=== PATIENT | female | born 1965 | race Caucasian/White ===

== ENCOUNTER 2017-05-15 11:11 | Emergency (ER) | payer OTHER, SELFPAY ==
[2017-05-15 11:53] LABS: #Eosinphils 1.1 thou/uL (0.0-0.7); #Lymphocytes 1.2 thou/uL (1.20-3.40); #Monocytes 0.4 thou/uL (0.11-0.59); #Neutrophils 1.8 thou/uL (1.40-6.50); %Basophils 0.4 % (0.0-1.0); %Eosinophils 24.9 % (0.0-10.0); %Lymphocytes 26.4 % (21.0-51.0); %Monocytes 7.9 % (0.0-10.0); Hematocrit 48.3 % (36.0-47.0); Mean Platelet Volume 8.4 fL (7.4-10.4); Red Blood Cell (RBC) Count 5.39 mill/uL (4.20-5.40); White Blood Cell (WBC) Count 4.4 thou/uL (4.8-10.8)
[2017-05-15 12:16] LABS: ALT (SGPT) 13 U/L (8-55); AST (SGOT) 16 U/L (5-34); Alkaline Phosphatase 83 U/L (40-150); Anion Gap 9 mmol/L (10-20); BUN (Urea Nitrogen) 16 mg/dL (9.8-20.1); Bilirubin, Total 0.6 mg/dL (0.2-1.2); Calc. Creatinine Clearance 0 mL/min (70-130); Calcium 10.1 mg/dL (7.8-10.44); Carbon Dioxide 28 mmol/L (22-29); Chloride 109 mmol/L (98-107); Estimated GFR-MDRD 61; Globulin 3.4 g/dL (2.4-3.5); Protein, Total 7.6 g/dL (6.0-8.3)
--- NOTE | 2017-05-15 12:19 | RAD ---
PORTABLE CHEST ONE VIWE: 05/15/2017 11:50 a.m. HISTORY: Cough. Shortness of breath. FINDINGS: The heart size is normal. The lungs are well expanded without focal areas of consolidation, pneumot horax, or pleural effusions. IMPRESSION: No radiographic evidence of acute cardiopulmonary process. POS: [facility]
[2017-05-15 12:21] LABS: PTT 31.6 SEC (22.9-36.1); Prothrombin Time 13.4 SEC (12.0-14.7)
[2017-05-15 12:28] LABS: CK (CPK) 47 U/L (29-168); Lipase 48 U/L (8-78)
[2017-05-15 12:34] LABS: Troponin I Less than 0.010 ng/mL (< 0.028)
--- NOTE | 2017-06-26 13:52 | EKG ---
Test Reason : Blood Pressure : / mmHG Vent. Rate : 097 BPM Atrial Rate : 097 BPM P-R Int : 110 ms QRS Dur : 082 ms QT Int : 344 ms P-R-T Axes : 059 075 070 degrees QTc Int : 436 ms Poor data quality, interpretation may be adversely affected Sinus rhythm with short MO Minimal voltage criteria for LVH, may be normal variant Borderline ECG Confirmed by BLANCA FELIPE, MATT ([id number]), film editor supervisor REFUGIO MARTINEZ ([id number]) on 06/26/2017 1:52:04 PM Referred By: Confirmed By:MATT RIOS MD
== END 2017-05-15 13:12 | disposition home or self-care (01) ==
LOC: ERS 11:11
DX: R07.89 Other chest pain (principal); F31.9 Bipolar disorder, unspecified; F17.290 Nicotine dependence, other tobacco product, uncomplicated
CPT/HCPCS: 71010; 80053; 82553; 83690; 83880; 84484; 85025; 85379; 85610; 85730; 93005; 94760

== ENCOUNTER 2017-07-31 20:18 | Emergency (ER) | payer SELFPAY ==
[2017-07-31] MEDS ORDERED: Ondansetron ODT 4 MG TAB ONE ×2 (22:10→23:05)
[2017-07-31] MEDS ORDERED: Ondansetron HCl/PF 4 MG/2 ML Vial ONE (22:38)
== END 2017-07-31 23:28 | disposition left against medical advice (07) ==
LOC: SCSER 20:18
DX: K52.9 Noninfective gastroenteritis and colitis, unspecified (principal); F31.9 Bipolar disorder, unspecified; F17.290 Nicotine dependence, other tobacco product, uncomplicated
CPT/HCPCS: 96372; J2405; Q0162

== ENCOUNTER 2017-10-25 09:47 | Emergency (ER) | payer SELFPAY ==
[2017-10-25] MEDS ORDERED: Ketorolac Tromethamine 60 MG/2 ML VIAL ONE (10:06)
[2017-10-25 10:15] LABS: Bilirubin Negative (Negative); Blood, Urine Negative (Negative); Clarity Clear (Clear); Glucose, Urine (Dipstick) Negative (Negative); Leukocyte Negative (Negative); Nitrite Negative (Negative); Protein, Urine (Dipstick) Negative (Neg-Trace); Urobilinogen 0.2 mg/dL (0.2-1.0); pH, Urine 6.5 (5.0-9.0)
--- NOTE | 2017-10-25 11:14 | CT ---
NONCONTRAST CT ABDOMEN AND PELVIS: Date: 10-25-17 History: Right flank pain. History of appendectomy and . Comparison: 11-22-05 FINDINGS: There is partial visualization of bilateral breasts prostheses. The lung bases, liver, spleen, pancreas, bilateral adrenal glands, kidneys, urinary bladder, uterus, and adnexal structures demonstrate a grossly normal nonenhanced CT appearance. No renal or ureteral c alculi are seen bilaterally. Minimal vascular calcifications are now present in the abdominal aorta. Previously noted left adnexal cystic structure on prior exam is not seen on today's study. There is partial sacralization of the L 5 vertebral body on the left. There is fusion of the left lateral mass of L5 with S1. IMPRESSION: No renal or ureteral calculi are seen bilaterally. POS: [facility]
== END 2017-10-25 10:57 | disposition home or self-care (01) ==
LOC: SCSER 09:47
DX: M54.5 Low back pain (principal); J44.9 Chronic obstructive pulmonary disease, unspecified; F31.9 Bipolar disorder, unspecified; F17.210 Nicotine dependence, cigarettes, uncomplicated
CPT/HCPCS: 74176; 81003; 96372; J1885

== ENCOUNTER 2017-12-17 00:25 | Emergency (ER) | payer SELFPAY ==
[2017-12-17 00:58] LABS: Bilirubin Negative (Negative); Blood, Urine Negative (Negative); Clarity CLEAR (Clear); Glucose, Urine (Dipstick) Negative (Negative); Leukocyte Small (Negative); Nitrite Negative (Negative); Protein, Urine (Dipstick) Negative (Neg-Trace); Specific Gravity, Urine 1.023 (1.002-1.036); Urobilinogen 0.2 mg/dL (0.2-1.0); pH, Urine 6.5 (5.0-9.0)
[2017-12-17 01:01] LABS: Bacteria/HPF None Seen HPF (None Seen); Hyaline Casts/LPF 0-3 HYALINE CAST LPF (0-3 Hyaline); Pathc Cast-AUWi Flag 0.14 (0-2.49); RBC/HPF 0-3 HPF (0-3)
[2017-12-17] MEDS ORDERED: Lidocaine 1% PF 5 ML VIAL ONE (02:34)
[2017-12-17] MEDS ORDERED: Azithromycin 250 MG TAB ONE (02:34)
[2017-12-17] MEDS ORDERED: cefTRIAXone\\ROCEPHIN 250 MG VIAL ONE (02:34)
[2017-12-19 03:17] LABS: Chlamydia by PCR Not Detected (NotDetected); GC by PCR Not Detected (NotDetected)
== END 2017-12-17 02:43 | disposition home or self-care (01) ==
LOC: ERS 00:25
DX: N89.8 Other specified noninflammatory disorders of vagina (principal); J44.9 Chronic obstructive pulmonary disease, unspecified; F31.9 Bipolar disorder, unspecified; F17.290 Nicotine dependence, other tobacco product, uncomplicated
CPT/HCPCS: 81003; 81015; 87086; 87480; 87491; 87510; 87591; 87660; 96372; J0696; J2001

== ENCOUNTER 2018-03-23 10:04 | Emergency (ER) | payer SELFPAY ==
[2018-03-23] MEDS ORDERED: metroNIDAZOLE 500 MG TAB ONE (10:38)
[2018-03-23] MEDS ORDERED: Lidocaine 1% PF 5 ML VIAL ONE (10:38)
[2018-03-23] MEDS ORDERED: cefTRIAXone\\ROCEPHIN 250 MG VIAL ONE (10:38)
[2018-03-25 20:51] LABS: Chlamydia by PCR Not Detected (NotDetected); GC by PCR Not Detected (NotDetected)
== END 2018-03-23 11:00 | disposition home or self-care (01) ==
LOC: SCSER 10:04
DX: N76.0 Acute vaginitis (principal); J44.9 Chronic obstructive pulmonary disease, unspecified; F31.9 Bipolar disorder, unspecified; F17.290 Nicotine dependence, other tobacco product, uncomplicated
CPT/HCPCS: 87480; 87491; 87510; 87591; 87660; 96372; J0696; J2001

== ENCOUNTER 2018-03-27 23:07 | Emergency (ER) | payer SELFPAY ==
[2018-03-27] MEDS ORDERED: Ibuprofen 200 MG TAB ONE (23:46)
== END 2018-03-28 00:15 | disposition home or self-care (01) ==
LOC: ERS 23:07
DX: J02.9 Acute pharyngitis, unspecified (principal); J44.9 Chronic obstructive pulmonary disease, unspecified; F31.9 Bipolar disorder, unspecified; F17.290 Nicotine dependence, other tobacco product, uncomplicated
CPT/HCPCS: 87070; 87081; 87430; 99283

== ENCOUNTER 2018-06-23 16:42 | Emergency (ER) | payer SELFPAY | END 2018-06-23 17:27 | disposition home or self-care (01) | LOC: SCSER 16:42 | DX: L73.9 Follicular disorder, unspecified (principal); F31.9 Bipolar disorder, unspecified; F17.290 Nicotine dependence, other tobacco product, uncomplicated | CPT/HCPCS: 99283 ==

== ENCOUNTER 2018-08-07 10:37 | Emergency (ER) | payer SELFPAY ==
--- NOTE | 2018-08-07 11:47 | RAD ---
TWO VIEWS CHEST: Comparison: 06-30-16 History: Productive cough. FINDINGS: Two views of the chest show normal sized cardiomediastinal silhouette. There is no evidence of consol idation, mass, or pleural effusion. The bones are unremarkable. IMPRESSION: No evidence of acute cardiopulmonary disease. POS: [facility]
== END 2018-08-07 11:45 | disposition home or self-care (01) ==
LOC: SCSER 10:37
DX: J06.9 Acute upper respiratory infection, unspecified (principal); J44.9 Chronic obstructive pulmonary disease, unspecified; F31.9 Bipolar disorder, unspecified; F17.290 Nicotine dependence, other tobacco product, uncomplicated
CPT/HCPCS: 71046

== ENCOUNTER 2018-09-25 13:10 | Emergency (ER) | payer SELFPAY ==
[2018-09-25] MEDS ORDERED: Lidocaine Viscous Sol 2% 15 ml UD Cup ONE (13:28)
== END 2018-09-25 13:37 | disposition home or self-care (01) ==
LOC: SCSER 13:10
DX: J20.9 Acute bronchitis, unspecified (principal); K13.70 Unspecified lesions of oral mucosa; F31.9 Bipolar disorder, unspecified
CPT/HCPCS: 99283

== ENCOUNTER 2018-10-09 13:45 | Emergency (ER) | payer SELFPAY ==
[2018-10-09] MEDS ORDERED: cefTRIAXone\\ROCEPHIN 250 MG VIAL ONE (14:22)
[2018-10-09] MEDS ORDERED: Azithromycin 250 MG TAB ONE (14:22)
[2018-10-09] MEDS ORDERED: Lidocaine 1% MPF 2 ML VIAL ONE (14:22)
[2018-10-12 12:06] LABS: Chlamydia by PCR Not Detected (NotDetected); GC by PCR Not Detected (NotDetected)
== END 2018-10-09 14:45 | disposition home or self-care (01) ==
LOC: SCSER 13:45
DX: Z20.2 Contact with and (suspected) exposure to infections with a predominantly sexual mode of transmission (principal); N94.10 Unspecified dyspareunia; Z71.6 Tobacco abuse counseling; J44.9 Chronic obstructive pulmonary disease, unspecified; F31.9 Bipolar disorder, unspecified
CPT/HCPCS: 87480; 87491; 87510; 87591; 87660; 96372; 99406; J0696; J2001

== ENCOUNTER 2018-12-05 14:39 | Emergency (ER) | payer SELFPAY ==
[2018-12-05] MEDS ORDERED: Sodium Chloride For Inhalation 0.9% 3 ML NEB ONE (15:18)
--- NOTE | 2018-12-05 16:41 | RAD ---
RADIOGRAPH CHEST 2 VIEWS: 12/05/18 HISTORY: 53-year-old female with cough, dyspnea, and wheezing. FINDINGS: There is no air space density, pulmonary edema, pleural effusion, pneumothorax, or cardiomegaly. IMPRESSION: No acute cardiopulmonary findings. jn [] POS: [facility]
[2018-12-07 00:25] LABS: Chlamydia by PCR Not Detected (NotDetected); GC by PCR Not Detected (NotDetected)
== END 2018-12-05 16:25 | disposition home or self-care (01) ==
LOC: SCSER 14:39
DX: J44.9 Chronic obstructive pulmonary disease, unspecified (principal); J45.901 Unspecified asthma with (acute) exacerbation; N93.0 Postcoital and contact bleeding
CPT/HCPCS: 71046; 87480; 87491; 87510; 87591; 87660; 94640; J7620

== ENCOUNTER 2019-02-09 17:28 | Emergency (ER) | payer SELFPAY | END 2019-02-09 18:25 | disposition left against medical advice (07) | LOC: ERS 17:28 | DX: Z53.21 Procedure and treatment not carried out due to patient leaving prior to being seen by health care provider (principal) ==

== ENCOUNTER 2019-02-09 18:12 | Emergency (ER) | payer SELFPAY | END 2019-02-09 18:40 | disposition home or self-care (01) | LOC: SCSER 18:12 | DX: S01.00XA Unspecified open wound of scalp, initial encounter (principal); J44.9 Chronic obstructive pulmonary disease, unspecified; F31.9 Bipolar disorder, unspecified; X58.XXXA Exposure to other specified factors, initial encounter | CPT/HCPCS: 99282 ==

== ENCOUNTER 2019-03-17 12:05 | Emergency (ER) | payer SELFPAY | END 2019-03-17 12:22 | disposition home or self-care (01) | LOC: SCSER 12:05 | DX: L02.214 Cutaneous abscess of groin (principal); J44.9 Chronic obstructive pulmonary disease, unspecified; F31.9 Bipolar disorder, unspecified | CPT/HCPCS: 99282 ==

== ENCOUNTER 2021-11-05 17:35 | Emergency (ER) | payer SELFPAY ==
[2021-11-05 18:29] LABS: #Lymphocytes 1.4 thou/uL (1.20-3.40); #Monocytes 0.5 thou/uL (0.11-0.59); %Basophils 0.8 % (0.0-1.0); %Eosinophils 17.3 % (0.0-10.0); %Lymphocytes 23.1 % (21.0-51.0); %Monocytes 8.3 % (0.0-10.0); %Neutrophils 50.4 % (42.0-75.0); Hemoglobin 14.9 g/dL (12.0-16.0); Mean Corpuscular Hemoglobin 30.3 pg (27.0-31.0); Mean Corpuscular Volume 88.9 fL (78.0-98.0); Mean Platelet Volume 7.4 fL (7.4-10.4); Platelet Count 231 thou/uL (130-400); RBC Distribution Width 12.6 % (11.5-14.5); Red Blood Cell (RBC) Count 4.92 mill/uL (4.20-5.40)
[2021-11-05 18:49] LABS: ALT (SGPT) 27 U/L (8-55); AST (SGOT) 25 U/L (5-34); Albumin 4.2 g/dL (3.5-5.0); Alkaline Phosphatase 88 U/L (40-110); Anion Gap 13 mmol/L (10-20); BUN (Urea Nitrogen) 16 mg/dL (9.8-20.1); Bilirubin, Total 0.4 mg/dL (0.2-1.2); Calc. Creatinine Clearance 0 mL/min (70-130); Calcium 9.3 mg/dL (7.8-10.44); Carbon Dioxide 23 mmol/L (22-29); Chloride 108 mmol/L (98-107); Globulin 3.9 g/dL (2.4-3.5); Glucose 126 mg/dL (70-105); Potassium 3.7 mmol/L (3.5-5.1); Protein, Total 8.1 g/dL (6.0-8.3); Sodium 140 mmol/L (136-145)
[2021-11-05] MEDS ORDERED: methylPREDNISolone Sod Succ/PF 125 MG/2 ML VIAL ONE (19:00)
== END 2021-11-05 19:58 | disposition home or self-care (01) ==
LOC: ERS 17:35
DX: J44.1 Chronic obstructive pulmonary disease with (acute) exacerbation (principal); N76.0 Acute vaginitis
CPT/HCPCS: 36415; 71045; 80053; 84484; 85025; 93005; 94640; 94760; 96374; J2930; J7620